=== PATIENT | female | born 1985 | race African-American/Black ===

== ENCOUNTER 2019-01-25 12:45 | Inpatient (IN) | payer MEDICAID ==
[~2019-01-25] VITALS: Ht 167.6 cm; Wt 95.2 kg
[2019-01-25] MEDS ORDERED: ACETAMINOPHEN 325 MG TAB PO PRN (13:00)
[2019-01-25] MEDS ORDERED: ONDANSETRON 4 MG INJ IV PRN (13:00)
[2019-01-25 13:15] VITALS: BP 112/62; PULSE 96; RESP 20
[2019-01-25 13:16] VITALS: Ht 167.6 cm; Wt 95.2 kg
[2019-01-25] MEDS ORDERED: CHOL400T10 PO (13:19)
[2019-01-25] MEDS ORDERED: PREN-6 PO (13:20)
[2019-01-25] MEDS: LACTATED RINGER'S 1,000 ML IV SCH ×2 (13:21→21:33)
--- NOTE | 2019-01-25 13:32 | HP ---
Date/Time of Note Date/Time of Note DATE: 01/25/19 TIME: 13:22 OB - History Hx of Present Free Text/Dictation 33 y.o. with an IUP at 32w 5d (EDC 03/17) came in today with c/o leaking large volumes of clear fluid since last night. She reports Dougherty-Tapia contractions only, not labor. No bleeding. Lots of movement. On exam the cervix was closed and thick and there was no pooling and nitrazine was negative but on US there was no amniotic fluid at all. The baby is BREECH. The pt had a visit with perinatology last week on 01/20 with an EFW of 1710 grams and an TERRELL of 10. The baby was breech at that time. The pt had a prior and had been hoping for a . Also, of note, the pt has a 6 cm right adnexal mass c/w a dermoid. The pt was sent to [facility] for steroids, monitoring, perinatology consult. She will have a , when indicated, and a right ovarian cystectomy. Estimated Due Date: Mar 17, 2019 : 2 Para: 1 Care: Good Care Ultrasounds: Normal mid trimester US Obstetrical Complications: None, Other (PPROM, Breech.) Medical Complications: None Past Family/Social History * Past Medical, Surgical, Family and Obstetric Histories reviewed from chart. Blood Type: B+ Rubella: immune RPR/VDRL: Negative GBS Status: Unknown HBsAG: Negative OB Admission Exam Vital Signs Vital Signs Vital Signs Date Temp Pulse Resp B/P (MAP) Pulse Ox O2 O2 Flow FiO2 Time Delivery Rate 01/25/19 98.0 96 20 112/62 Room Air 13:15 (79) Physical Exam Lungs: Clear Abdomen: WNL Extremities: Normal Reflexes: Normal Cervical Dilatation: None Effacement: 0% Station: -3 Membranes: Ruptured Amniotic Fluid: Clear Heart Rate: 140's Accelerations: Accelerations Present Decelerations: No Decelerations Varibility: Moderate Contractions on Admission: >10 Minutes Apart Intensity: Mild OB Assessment/Plan Reason for admission: rupture of membranes Other Assessment: IUP at 32w 5d. BREECH. 6 cm right ovarian dermoid. Previous . Plan: Section (when indicated.) Other plan: Beta methasone x 2. Perinatology consult. Neonatology consult. Beta strep culture was done today in the office. Right ovarian cystectomy at the time of . PATRICIA HECTOR MD January 25, 2019 13:32
[2019-01-25] MEDS ORDERED: AMPICILLIN 2 GM/NS (PMX) 100 ML IVPB ONE (14:00)
[2019-01-25] MEDS ORDERED: MAGNESIUM SULFATE 4 GM/100 ML 100 ML IVPB ONE (14:00)
[2019-01-25] MEDS ORDERED: AZITHROMYCIN 500MG/NS (PMX) 250 ML IVPB ONE (14:00)
[2019-01-25] MEDS: MAGNESIUM SULFATE 20 GM/500 ML 500 ML IV SCH (14:19)
[2019-01-25] MEDS: BETAMET NA PHOS/AC(6 MG/ML) 2 ML INJ SYG IM SCH (14:54)
[2019-01-25] MEDS: AMPICILLIN 1 GM/NS (PMX) 50 ML IVPB SCH ×2 (17:21→21:27)
--- NOTE | 2019-01-25 19:47 | CONS ---
Consultation Date/Type/Reason Admit Date/Time January 25, 2019 at 12:45 Date of Consultation: January 25, 2019 Type of Consult [facility] Reason for Consultation Requested by Dr. Nguyen to employment counselor mother regarding potential complications and outcome of at 32 completed weeks of a connors female. Mother is a 33 yo B+ [id number] with EDC 03/17/2019. complicated by previous section. Mother presented following presumed PROM ~ 2300 hr 01/24 with persistent leakage. Initial nitrazine -, but U/S demonstrated absent amniotic fluid. Admitted to L&D and treated with Ampicillin/Azithromycin, Betamethasone, and MgSO4. Discussed with mother at bedside high survival (>95%) of infants born at this gestation, particularly following completion of steroids. Discussed likelihood of requiring some form of ventilatory support as well as complication of apnea of prematurity. Reviewed bowel immaturity and progression of nipple gavage feedings and value of breast milk. Emphasized possibility of infection requiring delivery and ongoing risk of infection following delivery. Discussed possibility of intraventricular hemorrhage and increased risk of neurodevelopmental disability due to in general. Mother appeared to understand. Assured mother of availability to address further questions which may arise. Date/Time of Note DATE: 01/25/19 TIME: 19:27 Past Medical History Home Meds Reported Medications Vits #93-Iron Fum-FA ( Formula) 1 Each Tablet, 1 TAB PO DAILY, TAB 01/25/19 Cholecalciferol* (Vitamin D*) 400 Unit Tablet, 400 UNIT PO DAILY, TAB 01/25/19 Medications Current Medications Lactated Ringer's 1,000 ml @ 125 mls/hr Q8H IV Last administered on 01/25/19at 13:21; Admin Dose 125 MLS/HR; Start 01/25/19 at 12:58 Betamethasone Acet/Betameth SodPhos (Celestone Soluspan) 12 mg Q24H IM Last administered on 01/25/19at 14:54; Admin Dose 12 MG; Start 01/25/19 at 13:00; Stop 01/26/19 at 13:01 Prenat Multivit/ [place]/Iron/Folic Ac () 1 tab DAILY PO ; Start 01/26/19 at 09:00 Ferrous Sulfate (Ferrous Sulfate (Ec)) 325 mg DAILY PO ; Start 01/26/19 at 09:00 Acetaminophen (Tylenol Tab) 650 mg Q4H PRN PO .PAIN OR TEMP; Start 01/25/19 at 13:00 Ondansetron HCl (Zofran Inj) 4 mg Q6H PRN IV NAUSEA/VOMITING; Start 01/25/19 at 13:00 Magnesium Sulfate 500 ml @ 50 mls/hr Q10H IV Last administered on 01/25/19at 14:19; Admin Dose 50 MLS/HR; Start 01/25/19 at 14:00 Ampicillin 50 ml @ 100 mls/hr Q4 IVPB Last administered on 01/25/19at 17:21; Admin Dose 100 MLS/HR; Start 01/25/19 at 17:00 Azithromycin 250 mg/Sodium Chloride 250 ml @ 250 mls/hr Q24H IVPB ; Start 01/26/19 at 14:00 Allergies: Coded Allergies: No Known Drug Allergies (Verified Allergy, Unknown, 01/25/19) Social History Smoking Status: Never smoker Exam/Review of Systems Exam Vitals Vital Signs Date Temp Pulse Resp B/P (MAP) Pulse Ox O2 O2 Flow FiO2 Time Delivery Rate 01/25/19 98.0 96 20 112/62 Room Air 13:15 (79) Results Result Diagram: 01/25/19 1300 01/25/19 1300 Results 24hrs Laboratory Tests Test 01/25/19 13:00 01/25/19 18:24 White Blood Count 6.1 Red Blood Count 4.16 L Hemoglobin 11.9 L Hematocrit 35.2 L Mean Corpuscular Volume 84.6 Mean Corpuscular Hemoglobin 28.6 L Mean Corpuscular Hemoglobin Concent 33.8 Red Cell Distribution Width 13.9 Platelet Count 263 Mean Platelet Volume 9.8 Immature Granulocytes % 0.300 Neutrophils % 63.6 Lymphocytes % 28.1 Monocytes % 7.2 Eosinophils % 0.5 Basophils % 0.3 Nucleated Red Blood Cells % 0.0 Immature Granulocytes # 0.020 Neutrophils # 3.9 Lymphocytes # 1.7 Monocytes # 0.4 Eosinophils # 0.0 Basophils # 0.0 Nucleated Red Blood Cells # 0.0 Prothrombin Time 12.8 Prothrombin Time Ratio 1.0 INR International Normalized Ratio 0.95 Activated Partial Thromboplast Time 24.1 Sodium Level 135 Potassium Level 3.7 Chloride Level 108 Carbon Dioxide Level 19 L Anion Gap 8 Blood Urea Nitrogen 7 Creatinine 0.49 Est Glomerular Filtrat Rate mL/min > 60 Glucose Level 88 Calcium Level 8.7 Total Bilirubin 0.4 Direct Bilirubin 0.00 Indirect Bilirubin 0.4 Aspartate Amino Transf (AST/SGOT) 15 Alanine Aminotransferase (ALT/SGPT) 6 L Alkaline Phosphatase 87 Total Protein 6.7 Albumin 3.3 Globulin 3.40 H Albumin/Globulin Ratio 0.97 Rapid Plasma Reagin NONREACTIVE Magnesium Level 4.4 H Medications Medication Current Medications Lactated Ringer's 1,000 ml @ 125 mls/hr Q8H IV Last administered on 01/25/19at 13:21; Admin Dose 125 MLS/HR; Start 01/25/19 at 12:58 Betamethasone Acet/Betameth SodPhos (Celestone Soluspan) 12 mg Q24H IM Last administered on 01/25/19at 14:54; Admin Dose 12 MG; Start 01/25/19 at 13:00; Stop 01/26/19 at 13:01 Prenat Multivit/ Marketing Account Manager/Iron/Folic Ac () 1 tab DAILY PO ; Start 01/26/19 at 09:00 Ferrous Sulfate (Ferrous Sulfate (Ec)) 325 mg DAILY PO ; Start 01/26/19 at 09:00 Acetaminophen (Tylenol Tab) 650 mg Q4H PRN PO .PAIN OR TEMP; Start 01/25/19 at 13:00 Ondansetron HCl (Zofran Inj) 4 mg Q6H PRN IV NAUSEA/VOMITING; Start 01/25/19 at 13:00 Magnesium Sulfate 500 ml @ 50 mls/hr Q10H IV Last administered on 01/25/19at 14:19; Admin Dose 50 MLS/HR; Start 01/25/19 at 14:00 Ampicillin 50 ml @ 100 mls/hr Q4 IVPB Last administered on 01/25/19at 17:21; Admin Dose 100 MLS/HR; Start 01/25/19 at 17:00 Azithromycin 250 mg/Sodium Chloride 250 ml @ 250 mls/hr Q24H IVPB ; Start 01/26/19 at 14:00 HARDIK BROOKS MD January 25, 2019 19:46
[2019-01-26] MEDS ORDERED: DIPHENHYDRAMINE 25 MG CAP ONE (01:23)
[2019-01-26] MEDS: MAGNESIUM SULFATE 20 GM/500 ML 500 ML IV SCH ×3 (01:26→20:38)
[2019-01-26] MEDS: DIPHENHYDRAMINE 25 MG CAP PO PRN ×3 (01:33→23:21)
[2019-01-26] MEDS: AMPICILLIN 1 GM/NS (PMX) 50 ML IVPB SCH ×5 (05:14→20:38)
--- NOTE | 2019-01-26 09:16 | QN ---
Documentation Comment HD #1. IUP at 33w 6d. PPROM. Breech. 1st dose steroids at 1400 on 01/25. On magnesium for tocolysis and ampicillin and azithromycin. Pt was able to sleep after a dose of Benadryl. During the night continued to have a lot of fluid come out but now it has tapered off. Is going to take a shower. Minimal contractions and mild when they occur. Afebrile. VSS heart tracing reactive and without decels. P: Continue care. Plan to continue magnesium until 48 hours on steroids, i.e. tomorrow afternoon and then will d/c If not yet delivered by 34 weeks will then plan a . PATRICIA HECTOR MD January 26, 2019 09:16
[2019-01-26] MEDS: LACTATED RINGER'S 1,000 ML IV SCH ×3 (13:04→20:58)
[2019-01-26] MEDS: AZITHROMYCIN 250 MG in SOD CHLORIDE 0.9% 250 ML IVPB SCH (14:05)
[2019-01-26] MEDS: BETAMET NA PHOS/AC(6 MG/ML) 2 ML INJ SYG IM SCH (14:47)
[2019-01-26] MEDS: PRENATAL VITAMIN PO SCH (19:00)
[2019-01-26] MEDS: FERROUS SULFATE (EC) 325 MG TAB PO SCH (19:00)
[2019-01-27] MEDS: AMPICILLIN 1 GM/NS (PMX) 50 ML IVPB SCH ×7 (01:00→21:24)
[2019-01-27] MEDS: LACTATED RINGER'S 1,000 ML IV SCH (05:11)
[2019-01-27] MEDS: MAGNESIUM SULFATE 20 GM/500 ML 500 ML IV SCH ×2 (05:12→15:14)
[2019-01-27] MEDS: FERROUS SULFATE (EC) 325 MG TAB PO SCH (08:58)
[2019-01-27] MEDS: PRENATAL VITAMIN PO SCH (08:58)
[2019-01-27] MEDS: AZITHROMYCIN 250 MG in SOD CHLORIDE 0.9% 250 ML IVPB SCH (14:17)
[2019-01-27] MEDS: DIPHENHYDRAMINE 25 MG CAP PO PRN (23:25)
[2019-01-28] MEDS: LACTATED RINGER'S 1,000 ML IV SCH ×2 (01:06→22:20)
[2019-01-28] MEDS: AMPICILLIN 1 GM/NS (PMX) 50 ML IVPB SCH ×2 (01:06→05:30)
[2019-01-28] MEDS ORDERED: PHENYLephrine (100 MCG/ML) 10ML SYG IV ONE (01:07)
[2019-01-28] MEDS: MAGNESIUM SULFATE 20 GM/500 ML 500 ML IV SCH (01:09)
--- NOTE | 2019-01-28 02:56 | CONS ---
DATE OF ADMISSION: 01/25/2019 DATE OF CONSULTATION: 01/25/2019 The patient presented with vaginal bleeding and ultrasound showed placenta previa, which does show pl acental hematoma. She was subsequently placed on magnesium sulfate and betamethasone is given. RECOMMENDATIONS: Given the retroplacental hematoma and the vaginal bleeding that would cause the ret roplacental, which is not the cause, but really the result of the retroplacental hematoma and bleedin g intrauterine, I do recommend in-house management until delivery. If the patient has the second vag inal bleeding, I do recommend delivery. Otherwise, delivery at 37 weeks and NICU consult and she can discontinue the magnesium sulfate 24 hours after the second dose of betamethasone and then monitor. I do not recommend Procardia as Procardia is antihypertensive and it could exacerbate the result of the as a result of the bleeding. Dictated By: ERICKA HAZEL MD ST/NTS Conf#: [id number] DID#: [id number] CC: PATRICIA HECTOR MD; MORGAN SCHULTE MD;*End*
[2019-01-28] MEDS ORDERED: OXYTOCIN 30 UNITS/LR 500 ML IV SCH (06:30)
[2019-01-28] MEDS ORDERED: METHYLERGONOVINE 0.2 MG INJ IM PRN ×2 (06:30→13:30)
[2019-01-28] MEDS ORDERED: CARBOPROST 250 MCG INJ IM PRN ×2 (06:30→13:30)
[2019-01-28] MEDS ORDERED: MISOPROSTOL 200 MCG TAB PR PRN ×2 (06:30→13:30)
[2019-01-28] MEDS ORDERED: CEFAZOLIN 2 GM/50 ML (PMX) 50 ML IVPB SCH (06:30)
[2019-01-28] MEDS ORDERED: OXYTOCIN 30 UNITS/LR 500 ML IV PRN ×2 (06:30→13:30)
--- NOTE | 2019-01-28 08:57 | PREAC ---
Date/Time of Note Date/Time of Note DATE: 01/28/19 TIME: 08:56 Anesthesia Eval and Record Evaluation Time Pre-Procedure Interview DATE: 01/28/19 TIME: 08:56 Age 33 Sex female NPO: 8 hrs Preoperative diagnosis repeat c section decel Planned procedure c section Past Medical History Past Medical History: None Surgery & Anesthesia Issues No known issue Meds Anticoagulation: No Beta Radha within 24 hr: No Reason Beta Radha not given: Pt. not on B-Radha Reported Medications Vits #93-Iron Fum-FA ( Formula) 1 Each Tablet, 1 TAB PO DAILY, TAB 01/25/19 Cholecalciferol* (Vitamin D*) 400 Unit Tablet, 400 UNIT PO DAILY, TAB 01/25/19 Current Medications Lactated Ringer's 1,000 ml @ 125 mls/hr Q8H IV Last administered on 01/28/19at 01:06; Admin Dose 125 MLS/HR; Start 01/25/19 at 12:58 Prenat Multivit/ [place]/Iron/Folic Ac () 1 tab DAILY PO Last administered on 01/27/19at 08:58; Admin Dose 1 TAB; Start 01/26/19 at 09:00 Ferrous Sulfate (Ferrous Sulfate (Ec)) 325 mg DAILY PO Last administered on 01/27/19at 08:58; Admin Dose 325 MG; Start 01/26/19 at 09:00 Acetaminophen (Tylenol Tab) 650 mg Q4H PRN PO .PAIN OR TEMP; Start 01/25/19 at 13:00 Ondansetron HCl (Zofran Inj) 4 mg Q6H PRN IV NAUSEA/VOMITING; Start 01/25/19 at 13:00 Magnesium Sulfate 500 ml @ 50 mls/hr Q10H IV Last administered on 01/28/19at 01:09; Admin Dose 50 MLS/HR; Start 01/25/19 at 14:00 Ampicillin 50 ml @ 100 mls/hr Q4 IVPB Last administered on 01/28/19at 05:30; Admin Dose 100 MLS/HR; Start 01/25/19 at 17:00 Azithromycin 250 mg/Sodium Chloride 250 ml @ 250 mls/hr Q24H IVPB Last administered on 01/27/19at 14:17; Admin Dose 250 MLS/HR; Start 01/26/19 at 14:00 Diphenhydramine HCl (Benadryl) 25 mg Q6H PRN PO ITCHING Last administered on 01/27/19at 23:25; Admin Dose 25 MG; Start 01/26/19 at 01:30 Cefazolin Sodium/ Dextrose 50 ml @ 100 mls/hr ONCE IVPB ; Start 01/28/19 at 06:30 Oxytocin/Lactated Ringer's 500 ml @ 125 mls/hr POST IV ; Start 01/28/19 at 06:30 Oxytocin/Lactated Ringer's 500 ml @ 0 mls/hr ONCE PRN IV .VAGINAL BLEEDING; Start 01/28/19 at 06:30 Methylergonovine Maleate (Methergine) 0.2 mg ONCE PRN IM .VAGINAL BLEEDING; Start 01/28/19 at 06:30 Carboprost Tromethamine (Hemabate) 250 mcg ONCE PRN IM .VAGINAL BLEEDING; Start 01/28/19 at 06:30 Misoprostol (Cytotec) 1,000 mcg ONCE PRN RI .VAGINAL BLEEDING; Start 01/28/19 at 06:30 Meds reviewed: Yes Allergies Coded Allergies: No Known Drug Allergies (Verified Allergy, Unknown, 01/25/19) Allergies Reviewed: Yes Labs/Studies Labs Reviewed: Reviewed by anesthesiologist Result Diagram: 01/25/19 1300 01/25/19 1300 test: Positive Studies: ECG (n/a), CXR (n/a) Pre-procedure Exam Last vitals Vital Signs Date Temp Pulse Resp B/P (MAP) Pulse Ox O2 O2 Flow FiO2 Time Delivery Rate 01/25/19 98.0 96 20 112/62 Room Air 13:15 (79) Airway: Adequate mouth opening Mallampati: Mallampati I Teeth: Normal Lung: Normal Heart: Normal ASA Physical Status ASA physical status: 2 Emergency: None Planned Anesthetic Neuraxial: Spinal Planned Pain Management Sub-arachniod narcotics Pre-operative Attestations Prior to commencing anesthesia and surgery, the patient was re-evaluated, there was verification of: *The patient's identity *The results of appropriate recent lab work and preoperative vital signs *The above evaluation not changing prior to induction *Anesthetic plan, risk benefits, alternative and complications discussed with patient/family; questions answered; patient/family understands, accepts and wishes to proceed. TL AUGUST MD January 28, 2019 08:57
[2019-01-28] MEDS ORDERED: METOCLOPRAMIDE 10 MG INJ ONE (08:58)
[2019-01-28] MEDS ORDERED: KETOROLAC 30 MG INJ ONE (08:58)
[2019-01-28] MEDS ORDERED: morphine SULFATE/PF (10 MG/10 ML) INJ ONE (08:58)
[2019-01-28] MEDS ORDERED: FENTAnyl 50 MCG/ML VIAL ONE (09:45)
[2019-01-28] MEDS ORDERED: NALOXONE (0.4 MG/ML) INJ IV PRN (11:00)
[2019-01-28] MEDS ORDERED: KETOROLAC 30 MG INJ IV PRN (11:00)
[2019-01-28] MEDS ORDERED: ONDANSETRON 4 MG INJ IV PRN ×2 (11:00)
[2019-01-28] MEDS ORDERED: DIPHENHYDRAMINE 50 MG INJ IV PRN (11:00)
[2019-01-28] MEDS ORDERED: morphine 2 MG INJ IV PRN ×5 (11:00)
--- NOTE | 2019-01-28 11:55 | CONS ---
DATE OF ADMISSION: 01/25/2019 DATE OF CONSULTATION: 01/27/2019 REPLACEMENT FOR DICTATION FROM 01/27/2019 The patient presented with rupture of the membrane. At the time, she was 32 weeks and 5 days. She w as subsequently placed on ampicillin and azithromycin and was placed on magnesium, given betamethason e. RECOMMENDATIONS: Delivery is recommended at 34 weeks unless there is evidence of chorioamnionitis, l abor or nonreassuring heart tone. IV antibiotics for 2 days and then it can be switched to p.o . antibiotics for 5 days. Ampicillin and azithromycin to finish a total of 7 days IV and p.o. total. Dictated By: ERICKA HAZEL MD ST/NTS Conf#: [id number] DID#: [id number] CC: PATRICIA HECTOR MD;*End*
--- NOTE | 2019-01-28 13:20 | OPR ---
Operative Report Planned Procedure Procedure date January 28, 2019 Procedure(s) Repeat low transverse . Right ovarian cystectomy. Performed by see signature line Radio Engineering Teacher: AYAN BUSTILLO MD Anesthesiologist: TL AUGUST MD Pre-procedure diagnosis IUP at 33 weeks. PPROM. Breech. Labor. 6 cm right ovarian dermoid cyst. [id number] Anesthesia Type: [id number] spinal Post-Procedure Post-procedure diagnosis Same. Findings Viable baby girl weighing 1740 grams or 3# 13 oz, 17" long. Estimated Blood Loss: 400 - 500 mls Specimen(s) Placenta to pathology. Right ovarian cyst to pathology. Grafts/Implant(s) none Complication(s) none Pt Condition post procedure: stable Disposition: PACU Procedure Description Under satisfactory spinal anesthesia, the patient was prepped and draped and placed in a supine position, tilted to the left. Pfannenstiel incision was made removing the old scar, and carried through the subcutaneous tissue. Bleeders brought under control with electrocautery. Fascia incised to the length of the incision. Rectus muscles from the fascia, divided midline. Peritoneum exposed, entered through a transverse incision. Transverse incision was made in the lower segment of the uterus. Minimal but clear amniotic fluid noted. Buttocks were delivered first until the legs could be delivered. The baby was then delivered to the shoulders and the arms were delivered. The head was easily delivered with fundal pressure. The mouth and nares were bulb suctioned. The cord was doubly clamped and cut after 30 seconds. The baby was brought to the warmer and the team for immediate attention. The placenta was delivered manually intact. Uterine cavity was cleaned with wet sponge and drainage established. Of note there were multiple fibroids present in the body of the ut erus and one that was on the outside of the uterus anteriorly and to the right. Uterus closed in 2 layers using #1 chromic in continuous fashion. Peritoneal cavity irrigated with warm saline. There is a 6 cm ovarina cyst, a presumed dermoid based on US appearance that was enucleated from the ovary and handed off the field to be sent to pathology. The ovary was closed with a pursestring stitch with excellent hemostasis. The outside was closed with a baseball stitch. A piece of Interceed was stitched to the ovary. Sponge, needle and instrument count reported to be correct. Abdominal peritoneum closed with 2-0 Chromic continuously. Rectus muscle approximated with the same suture. Fascia closed with 0-Vicryl. The subcutaneous tissue was irrigated and closed with 2-0 Chromic and skin was closed with 3-0 Monocryl in a subcuticular stitch. Steristrips with Mastosol were placed. Estimated blood loss 500 mL. Urine was clear. PATRICIA HECTOR MD January 28, 2019 13:20
--- NOTE | 2019-01-28 13:27 | QN ---
Documentation Comment HD #3 Pt has been having increasing frequency of contractions and the strength of them since early evening last night despite being on Magnesium. As she had had dinner and a snack I opted to wait for the AM. Her cervix had been closed and the baby had looked fine.The baby had a 2-3 decels overnight with recovery and the tracing always looked reactive the rest of the time. Plan for repeat with right ovarian cystectomy. Dx IUP at 33w 1d. Previous . PPROM. Breech. Labor. Right ovarian dermoid cyst. PATRICIA HECTOR MD January 28, 2019 13:26
[2019-01-28] MEDS ORDERED: NACL 0.9% 3 ML SYG IV SCH (13:30)
[2019-01-28] MEDS ORDERED: LANOLIN HPA 1 PKT TOP PRN (13:30)
[2019-01-28 13:50] VITALS: BP 108/65; PULSE 80; RESP 18
[2019-01-28] MEDS: IBUPROFEN 800 MG TAB PO SCH ×2 (14:00→22:00)
[2019-01-28] MEDS: OXYTOCIN 30 UNITS/LR 500 ML IV SCH ×2 (14:10→23:27)
--- NOTE | 2019-01-28 17:32 | PAC ---
Date/Time of Note Date/Time of Note DATE: 01/28/19 TIME: 17:32 Post-Anesthesia Notes Post-Anesthesia Note Last documented vital signs Vital Signs Date Temp Pulse Resp B/P (MAP) Pulse Ox O2 O2 Flow FiO2 Time Delivery Rate 01/28/19 97.8 80 18 108/65 96 Room Air 13:50 (79) Activity: WNL Respiratory function: WNL Cardiovascular function: WNL Mental status: Baseline Pain reasonably controlled: Yes Hydration appropriate: Yes Nausea/Vomiting absent: No TL AUGUST MD January 28, 2019 17:32
[2019-01-28 17:54] VITALS: BP 105/59; PULSE 104; RESP 16
[2019-01-28 20:30] VITALS: BP 100/60; PULSE 113; RESP 18
[2019-01-28] MEDS: KETOROLAC 30 MG INJ IV PRN (20:31)
[2019-01-28] MEDS: SENNA/DOCUSATE NA (8.6MG/50MG) TAB PO SCH (20:32)
[2019-01-28] MEDS: DIPHENHYDRAMINE 50 MG INJ IV PRN (22:20)
[2019-01-29] VITALS (7 sets, daily range): BP systolic 96–124; BP diastolic 57–68; PULSE 89–124; RESP 16–22
[2019-01-29] MEDS: KETOROLAC 30 MG INJ IV PRN (03:04)
[2019-01-29] MEDS: IBUPROFEN 800 MG TAB PO SCH ×3 (05:57→21:19)
[2019-01-29] MEDS: DIPHENHYDRAMINE 50 MG INJ IV PRN (06:11)
[2019-01-29] MEDS: LACTATED RINGER'S 1,000 ML IV SCH (06:11)
[2019-01-29] MEDS: morphine 2 MG INJ IV PRN ×2 (06:12→09:45)
--- NOTE | 2019-01-29 07:01 | OPPN ---
Date/Time of Note Date/Time of Note DATE: 01/29/19 TIME: 07:00 Anesthesia Follow up Anesthesia Follow up Last documented vital signs Vital Signs Date Temp Pulse Resp B/P (MAP) Pulse Ox O2 O2 Flow FiO2 Time Delivery Rate 01/29/19 99.0 92 18 96/ 97 Room Air 03:00 Respiratory function: WNL Cardiovascular function: WNL Comments a 33 year post duramorph for post op pain POD #1 is fine . No itching, N/V/ headache, neural deficit.Pain is controlled TL AUGUST MD January 29, 2019 07:01
--- NOTE | 2019-01-29 07:03 | OPPN ---
Date/Time of Note Date/Time of Note DATE: 01/29/19 TIME: 07:03 Anesthesia Follow up Anesthesia Follow up Last documented vital signs Vital Signs Date Temp Pulse Resp B/P (MAP) Pulse Ox O2 O2 Flow FiO2 Time Delivery Rate 01/29/19 99.0 92 18 96/ 97 Room Air 03:00 Respiratory function: WNL Cardiovascular function: WNL Comments a 33 year post duramorph for post op pain POD #1 is fine . No itching, N/V/ headache, neural deficit.Pain is controlled TL AUGUST MD January 29, 2019 07:03
[2019-01-29] MEDS: SENNA/DOCUSATE NA (8.6MG/50MG) TAB PO SCH ×2 (09:00→21:19)
[2019-01-29] MEDS: OXYCODONE/ACETAMINOPHEN (5/325) TAB PO PRN ×2 (12:53→22:16)
[2019-01-30] MEDS: OXYCODONE/ACETAMINOPHEN (5/325) TAB PO PRN ×4 (02:46→19:40)
[2019-01-30 04:00] VITALS: BP 96/62; PULSE 92; RESP 18
[2019-01-30] MEDS: IBUPROFEN 800 MG TAB PO SCH ×3 (06:24→22:23)
[2019-01-30 08:10] VITALS: BP 108/64; PULSE 96; RESP 18
[2019-01-30] MEDS: SENNA/DOCUSATE NA (8.6MG/50MG) TAB PO SCH ×2 (10:38→22:02)
[2019-01-30 16:00] VITALS: BP 110/73; PULSE 97; RESP 19; RESP 22
[2019-01-30 20:00] VITALS: BP 125/73; PULSE 104; RESP 18
--- NOTE | 2019-01-30 22:40 | QN ---
Documentation Comment POD #2 Pt is doing well. Pumping and the baby tried to latch today! And did for a bit! Good pain control. No issues. T=98.2 BP 125/73 Incision is clean, dry, and intact. Abdomen non-distended, soft. Lochia minimal. Ext nontender, no edema. 01/29 WBC 9.5 Hgb 10.8 P: Continue care and possible d/c tomorrow. PATRICIA HECTOR MD January 30, 2019 22:40
[2019-01-31] MEDS: OXYCODONE/ACETAMINOPHEN (5/325) TAB PO PRN (03:28)
[2019-01-31 04:10] VITALS: BP 104/74; PULSE 81; RESP 18
[2019-01-31] MEDS: IBUPROFEN 800 MG TAB PO SCH ×2 (06:27→13:37)
[2019-01-31 08:50] VITALS: BP 111/71; PULSE 75; RESP 75
[2019-01-31] MEDS: SENNA/DOCUSATE NA (8.6MG/50MG) TAB PO SCH (08:56)
[2019-01-31] MEDS ORDERED: DIPHTH/TET/ACEL PERTUSS (ADULT) 0.5 ML VIAL IM* ONE (09:00)
--- NOTE | 2019-01-31 12:20 | PD.PPDC ---
FACILITY MAINTENANCE MANAGER Discharge Instruction Condition [id number] Patient Condition: Vhexs1d Good Diet Eacju3Vn Diet: Vvjtw1e Resume Regular Diet Activity/Restrictions [id number] Activity: Kcozx6c Bedrest May be up to bathroom May be up for meals May Shower Cxnzf3Cb Restrictions: Aqjgj6v No Exercising No Lifting No Driving Minimize Walking Minimize Stair-climbing No Sexual Activity Nothing in the Vagina No [place] No Tampons, douche Wound/Drain Care Instructions [id number] Wound/Drain Care Cpguv7h Remove Steri Strips in 2 Instructions: weeks Keep clean and dry Follow-up Follow-up with Physician: 2 Return to clinic for Eoyen2Dc FRONT END DRIVER Instructions: Cuvdj9o Fever greater than 101 Chills Worsening abdominal pain Excessive Vaginal Bleeding Hgjfm8As OB Instructions: Wwbno7p Breast Tenderness Depression Eeupi4Sp Surgical Instructions: Djdji3b Incisional Drainage Incisional Redness PATRICIA HECTOR MD January 31, 2019 12:20
[2019-01-31] MEDS ORDERED: IBUP800T48 PO (12:22)
[2019-01-31] MEDS ORDERED: OXYC-438 PO (12:22)
[2019-01-31] MEDS ORDERED: VALA500T PO (12:22)
--- NOTE | 2019-01-31 12:25 | DS ---
Date/Time of Note Date/Time of Note DATE: 01/31/19 TIME: 12:23 Obstetrical Discharge Record Final Diagnosis Final Diagnosis: delivered Other Final Diagnosis Oral herpes Section Section: Repeat (PPROM. Breech. Labor.) Complications Complications: Low weight 1500-2500gms Complications Labor Augmentation: No Induction: No Rupture of Membranes: Yes Gestational Age at Rupture 32w 5d Condition on Discharge Physical Assessment Last Vitals: 104/74 T=98.2 Voiding: Yes Bowel Movement: Yes Breast: Engorged Fundus: Firm Abdomen and Incision: Clean,dry, intact. Calf Tenderness: No Patient Condition: Good PATRICIA HECTOR MD January 31, 2019 12:25
[2019-01-31] MEDS ORDERED: valACYclovir 500 MG TAB PO SCH (14:00)
--- NOTE | 2019-02-01 17:19 | DELSUM ---
Delivery Summary A-C Datetime Report Generated by CPN: 02/01/2019 17:19 DELIVERY PERSONNEL Test Kitchen Home Economist: MARIAH, PINO MATERNAL INFORMATION Delivery Anesthesia: Spinal Medications in Delivery: PITOCIN Delivery QBL (ml): 600 Placenta Cultured: No Maternal Complications: PROM; Other Other Maternal Complications: LOW TERRELL LABOR SUMMARY EDC: 03/17/2019 00:00 No. Babies in Womb: 1 Attempted: No Labor Anesthesia: None LABOR INFORMATION Reason for Induction: Not Applicable Oxytocin: N/A Group B Beta Strep: Done, Result Unknown Antibiotics # of Doses: 17 Antibiotics Time of Last Dose: 01/28/2019 09:09 Steroids Given: None Reason Steroids Not Administered: Not Applicable MEMBRANES Membranes Rupture Method: Spontaneous Rupture of Membranes: 01/24/2019 23:50 Length of Rupture (hr): 81.70 Amniotic Fluid Color: Clear Amniotic Fluid Amount: Moderate Amniotic Fluid Odor: None STAGES OF LABOR Stage 3 hr: 0 Stage 3 min: 1 CSECTION DELIVERY Primary Indication: Repeat Elective Other Primary Indication: ROM Secondary Indication: Breech Presentation Other Secondary Indication: LABOR CSection Urgency: Non Elective CSection Incidence: Repeat Labor: No Labor Elective: Nonelective CSection Incision: Lower Uterine Transverse BABY A INFORMATION Delivery Date/Time: 01/28/2019 09:32 Method of Delivery: Born in Route : No : N/A Forceps: N/A Vacuum Extraction: N/A Shoulder Dystocia : N/A SHOULDER DYSTOCIA BABY A Delivery Date/Time: 01/28/2019 09:32 PRESENTATION/POSITION BABY A Presentation: Breech Cephalic Presentation: N/A Vertex Position: N/A Breech Presentation: Complete PLACENTA INFORMATION BABY A Placenta Delivery Time : 01/28/2019 09:33 Placenta Method of Delivery: Manual Removal Placenta Status: Delivered SCORES BABY A Heart Rate 1 min: >100 bpm Resp Effort 1 min: Good Cry Reflex Irritability 1 min: Cough/Sneeze/Pulls Away Muscle Tone 1 min: Active Motion Color 1 min: Blue/Pale Resuscitation Effort 1 min: Tactile Stimulation SCORE 1 MIN: 8 Heart Rate 5 min: >100 bpm Resp Effort 5 min: Good Cry Reflex Irritability 5 min: Cough/Sneeze/Pulls Away Muscle Tone 5 min: Active Motion Color 5 min: Body [place], Extremit Blue Resuscitation Effort 5 min: Tactile Stimulation SCORE 5 MIN: 9 INFANT INFORMATION BABY A Gestational Age at Delivery: 33.1 Gestational Status: - <34 Weeks Infant Outcome : Liveborn Infant Condition : Stable Infant Sex: Female IDENTIFICATION/MEDS BABY A ID Band Number: [id number] ID Band Location: Right Leg; Left Arm Sensor Applied: No Sensor Number: N/A Sensor Location : Other Vitamin K Given : Not Given Erythromycin Given: Not Given WEIGHT/LENGTH BABY A Birthweight (gm): 1740 Infant Weight (lb): 3 Infant Weight (oz): 13 Infant Length (in): 17.00 Infant Length (cm): 43.18 CORD INFORMATION BABY A No. Cord Vessels: 3 Nuchal Cord : N/A Cord Blood Taken: No Infant Suction: Mouth; Nose ASSESSMENT BABY A Infant Complications: Multiple Variable Decels Physical Findings at Delivery: Within Normal Limits Respirations: Appears Normal Ob/Gyn Physician/ALS Called : Yes Care By: Chip HICKEY, EDGAR EVANS Transferred To: NICU
== END 2019-01-31 16:15 | disposition home or self-care (01) | DRG 786 ==
LOC: L-D 12:45 → PP1 01-28 13:45
PROVIDERS: ADMIT Obstetrics & Gynecology; ATTEND Obstetrics & Gynecology
PROC: 0UB00ZZ Excision of Right Ovary, Open Approach (ICD-10-PCS; 2019-01-28)
PROC: 10D00Z1 Extraction of Products of Conception, Low, Open Approach (ICD-10-PCS; principal; 2019-01-28 09:00)
DX: O65.5 Obstructed labor due to abnormality of maternal pelvic organs (principal); O60.13X0 Preterm labor second trimester with preterm delivery third trimester, not applicable or unspecified; O34.211 Maternal care for low transverse scar from previous cesarean delivery; O99.89 Other specified diseases and conditions complicating pregnancy, childbirth and the puerperium; D27.0 Benign neoplasm of right ovary; Z3A.33 33 weeks gestation of pregnancy; Z37.0 Single live birth
CPT/HCPCS: 80053; 83735; 85025; 85610; 85730; 86592; 86850; 86900; 86901; 87255; 88305; 88307; 90715; 99464; J0290; J0456; J0690; J0702; J1200; J1885; J2270; J2274; J2370; J2405; J2590; J2765; J3010; J3475; J7050; J7120